=== PATIENT | male | born 1985 | race Caucasian/White ===

== ENCOUNTER → 2017-03-18 | Outpatient (CLI) | payer OTHER ==
--- NOTE | 2017-03-18 21:47 | RADIOLOGY REPORT (SQ) ---
EXAM DESCRIPTION: CHEST PA/LAT COMPLETED DATE/TIME: 03/18/2017 9:39 pm REASON FOR STUDY: RO7.89 LEFT SIDED CHEST WALL PAIN COMPARISON: 10/25/2013 EXAM PARAMETERS: NUMBER OF VIEWS: two views TECHNIQUE: Digital Frontal and Lateral radiographic views of the chest acquired. RADIATION DOSE: NA LIMITATIONS: none FINDINGS: LUNGS AND PLEURA: No opacities, masses or pneumothorax. No pleural effusion. MEDIASTINUM AND HILAR STRUCTURES: No masses or contour abnormalities. HEART AND VASCULAR STRUCTURES: Heart normal size. No evidence for failure. BONES: No acute findings. HARDWARE: None in the chest. OTHER: No other significant finding. IMPRESSION: NO SIGNIFICANT RADIOGRAPHIC FINDING IN THE CHEST. TECHNICAL DOCUMENTATION: JOB ID: [id number] [employer]- All Rights Reserved
== END ==
LOC: RAD 21:19
DX: R07.89 Other chest pain (principal)
CPT/HCPCS: 71046

== ENCOUNTER 2019-09-27 10:42 | Emergency (ER) | payer OTHER ==
[2019-09-27] MEDS ORDERED: DIPH/PERTUSS(ACELL)/TETANUS VAC/PF 0.5 ML SYR (>=10YO) IM ONE (10:58)
--- NOTE | 2019-09-27 10:59 | ER Document Report ---
ED Medical Screen (RME) - General Chief Complaint: Finger Injury Stated Complaint: FINGER INJURY Time Seen by Provider: 09/27/19 10:55 Primary Care Provider: TRINITY MILLER MD [Primary Care Provider] - Follow up as needed Mode of Arrival: Wheelchair Information source: Patient Notes: 34-year-old male presented to ED for band saw injury to the left arm. He does have a significant laceration with bleeding. I have ordered a x-ray of the thumb as well as tetanus. He states his been more than 5 years. 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 Patient is alert oriented respirations regular nonlabored. He was a little lightheaded symmetric gait in a wheelchair. I have greeted and performed a rapid initial assessment of this patient. A comprehensive ED assessment and evaluation of the patient, analysis of test results and completion of medical decision making process will be conducted by an additional ED providers. TRAVEL OUTSIDE OF THE [place] IN LAST 30 DAYS: No - Related Data Allergies/Adverse Reactions: Penicillins Allergy (Severe, Verified 10/25/13 21:29) anaphalaxis erythromycin base [Erythromycin Base] Allergy (Verified 10/25/13 21:29) Past Medical History - Past Medical History Cardiac Medical History: Reports: Hx Hypertension Pulmonary Medical History: Reports: Hx Bronchitis Past Surgical History: Reports: Hx Orthopedic Surgery, Hx Tonsillectomy - Immunizations Hx Diphtheria, Pertussis, Tetanus Vaccination: Yes Physical Exam - Vital signs Vitals: Temp Pulse Resp BP Pulse Ox 98.2 F 79 16 150/92 H 100 09/27/19 10:45 09/27/19 10:45 09/27/19 10:45 09/27/19 10:45 09/27/19 10:45 Course - Vital Signs Vital signs: Temp Pulse Resp BP Pulse Ox 98.2 F 79 16 150/92 H 100 09/27/19 10:45 09/27/19 10:45 09/27/19 10:45 09/27/19 10:45 09/27/19 10:45 Doctor's Discharge - Discharge Referrals: TRINITY MILLER MD [Primary Care Provider] - Follow up as needed
--- NOTE | 2019-09-27 11:15 | RADIOLOGY REPORT (SQ) ---
EXAM DESCRIPTION: FINGER LEFT IMAGES COMPLETED DATE/TIME: 09/27/2019 11:07 am REASON FOR STUDY: band saw injury COMPARISON: None. NUMBER OF VIEWS: Three views. TECHNIQUE: AP, lateral, and oblique images acquired of the left thumb. LIMITATIONS: None. FINDINGS: MINERALIZATION: Normal. BONES: No acute fracture or dislocation. No worrisome bone lesions. SOFT TISSUES: Skin defect tip of the 1st phalanx. No foreign body. OTHER: No other significant finding. IMPRESSION: Soft tissue injury. TECHNICAL DOCUMENTATION: JOB ID: [id number] [employer]- All Rights Reserved Reading location - IP/workstation name: [email or web address]
[2019-09-27] MEDS ORDERED: MORPHINE SULFATE 10 MG/ML INJ IM ONE (12:12)
[2019-09-27] MEDS ORDERED: ONDANSETRON 4 MG TAB.RAPDIS PO ONE (12:12)
[2019-09-27] MEDS ORDERED: LIDOCAINE 1% INJ-PF (10 MG/ML) 30 ML SDV INJ ONE ×2 (12:13→12:15)
--- NOTE | 2019-09-27 13:03 | ER Document Report ---
Entered by NICCI CARDENAS SCRIBE 09/27/19 1234 Acting as scribe for:TIM BAH MD ED Hand/Wrist Injury - General Chief Complaint: Thumb Injury Stated Complaint: FINGER INJURY Time Seen by Provider: 09/27/19 10:55 Primary Care Provider: TRINITY MILLER MD [Primary Care Provider] - Follow up as needed Mode of Arrival: Wheelchair Information source: Patient Notes: This 34 year old male patient presents to the emergency department today with complaints of a left thumb laceration. Patient was using a band saw prior to arrival and stepped backward causing his flip flop to snag onto an electrical cord. Patient states that he rested his left hand against the blade guard to balance himself and the blade guard somehow moved and gave way. TRAVEL OUTSIDE OF THE [place] IN LAST 30 DAYS: No - Related Data Allergies/Adverse Reactions: Penicillins Allergy (Severe, Verified 10/25/13 21:29) anaphalaxis erythromycin base [Erythromycin Base] Allergy (Verified 10/25/13 21:29) Home Medications: Lisinopril. Concerta. Tramadol. Wellbutin. 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 Lives with: Family Family History: Reviewed & Not Pertinent - Past Medical History Cardiac Medical History: Reports: Hx Hypertension Pulmonary Medical History: Reports: Hx Bronchitis Psychiatric Medical History: Reports: Hx Depression Past Surgical History: Reports: Hx Orthopedic Surgery - L labrum repair, Hx Tonsillectomy - Immunizations Hx Diphtheria, Pertussis, Tetanus Vaccination: Yes Review of Systems - Review of Systems Constitutional: No symptoms reported EENT: No symptoms reported Cardiovascular: No symptoms reported Respiratory: No symptoms reported Gastrointestinal: No symptoms reported Genitourinary: No symptoms reported Male Genitourinary: No symptoms reported Musculoskeletal: No symptoms reported Skin: See HPI, Other - left thumb laceration Hematologic/Lymphatic: No symptoms reported Neurological/Psychological: No symptoms reported -: Yes All other systems reviewed and negative Physical Exam - Vital signs Vitals: Temp Pulse Resp BP Pulse Ox 98.2 F 79 16 150/92 H 100 09/27/19 10:45 09/27/19 10:45 09/27/19 10:45 09/27/19 10:45 09/27/19 10:45 - General General appearance: Alert, Anxious In distress: Moderate - HEENT Head: Normocephalic, Atraumatic Eyes: Normal Pupils: PERRL - Respiratory Respiratory status: No respiratory distress - Cardiovascular Rhythm: Regular - Abdominal Inspection: Normal - Back Back: Normal - Extremities General upper extremity: Other - The left volar thumb tip has a curved 3 cm laceration that appears to have occurred from the thumb tip being punched into the band saw blade creating a flap with the base being on the proximal aspect of the wound. There is bulging subcutaneous tissue and actively bleeding. Sensation to the fingertip is intact. Laceration does not extend on either side into the region of the digital nerves. The laceration does not come close to the IP joint, there is no flexor tendon involvement. General lower extremity: Normal inspection - Neurological Neuro grossly intact: Yes - Psychological Associated symptoms: Normal affect, Normal mood - Skin Skin Temperature: Warm Skin Moisture: Dry Skin Color: Normal Course - Re-evaluation Re-evalutation: 09/27/19 15:34 PROCEDURE: The skin of the left thumb and hand was prepped with Shur-Clens. The thumb was anesthetized with a total of 8 mL's 1% lidocaine by metacarpal block. There was an additional 1/2 mL of 1% lidocaine introduced into the soft tissues on either side of the thumb tip at the base of the curved laceration. This was done due to either an adequate complete anesthesia or a wearing off of anesthesia due to delay in being able to get back to the patient. Wound was copiously irrigated with 30 mL's of normal saline via syringe tip introduced deep into the wound. No foreign body or material was seen. The flap was pressed down into the thumb and the subcutaneous fat that continued the bulge was trimmed away with scissors. The flap was then approximated using seven 5-0 nylon simple sutures. Clear nylon was used because the staff was unable to locate any black Ethilon. The wound then had a sterile dressing placed. - Vital Signs Vital signs: Temp Pulse Resp BP Pulse Ox 98.5 F 84 16 138/91 H 98 09/27/19 14:36 09/27/19 14:36 09/27/19 14:36 09/27/19 14:36 09/27/19 14:36 - Diagnostic Test Radiology reviewed: Image reviewed, Reports reviewed - Soft tissue defect seen on x-ray of the left thumb, no bony involvement. Discharge - Discharge Clinical Impression: Laceration of thumb without complication Qualifiers: Encounter type: initial encounter Laterality: left Qualified Code(s): S61.012A - Laceration without foreign body of left thumb without damage to nail, initial encounter Condition: Stable Disposition: HOME, SELF-CARE Additional Instructions: Hand Laceration A laceration on the hand can present special problems. It may be difficult to keep the wound dry. Motion of the fingers can disturb the healing edges. Your work may involve exposure to damaging chemicals or water. Keep the wound clean and dry. If you can't keep the cut dry, undisturbed, and free of chemical exposure, please discuss this with the doctor. If any water or chemical gets onto the dressing, remove it, blot the wound dry, then apply a fresh bandage. Dressings should be changed every day. If you feel the stitches pulling as you move the hand, a splint or other form of protection is needed. If any signs of infection occur (swelling, redness, increasing tenderness, red streaks, tender lumps in the armpit, or fever), see the doctor immediately. Keep the wound dressing clean and dry. Elevate your hand all the time. Take medications as prescribed. Return in 10 days to have the sutures removed. RETURN TO THE EMERGENCY ROOM IF ANY NEW OR WORSENING SYMPTOMS. Prescriptions: Cephalexin Monohydrate [Keflex 500 mg Capsule] 500 mg PO QID #20 capsule Oxycodone HCl/Acetaminophen [Percocet 5-325 mg Tablet] 1 tab PO ASDIR PRN #15 tablet PRN Reason: Forms: Return to Work Referrals: TRINITY MILLER MD [Primary Care Provider] - Follow up as needed I personally performed the services described in the documentation, reviewed and edited the documentation which was dictated to the scribe in my presence, and it accurately records my words and actions.
[2019-09-27 14:37] VITALS: BP 138/91
[2019-09-27] MEDS ORDERED: CEPHALEXIN 500 MG CAPSULE PO ONE (14:39)
[2019-09-27] MEDS ORDERED: OXYCODONE-ACETAMINOPHEN 5-325 MG TABLET PO ONE (14:39)
== END 2019-09-27 15:13 | disposition home or self-care (01) ==
LOC: ER 10:42
DX: S61.012A Laceration without foreign body of left thumb without damage to nail, initial encounter (principal); W29.8XXA Contact with other powered hand tools and household machinery, initial encounter; Y93.89 Activity, other specified; I10 Essential (primary) hypertension; F32.9 Major depressive disorder, single episode, unspecified; Z79.899 Other long term (current) drug therapy; Z87.891 Personal history of nicotine dependence; Z87.892 Personal history of anaphylaxis; Z88.0 Allergy status to penicillin; Z88.1 Allergy status to other antibiotic agents
CPT/HCPCS: 99283; 96372; 73140; 12002; S0119; J3490; J2270